=== PATIENT | male | born 1970 | race Caucasian/White ===

== ENCOUNTER 2025-04-26 06:25 | Day surgery (SDC) | payer OTHER, SELFPAY | END 2025-04-26 14:06 | disposition home or self-care (01) | LOC: GI 06:25 | PROVIDERS: ATTENDING PHYSICIAN Student in an Organized Health Care Education/Training Program | DX: Z12.11 Encounter for screening for malignant neoplasm of colon (principal); Z53.8 Procedure and treatment not carried out for other reasons | CPT/HCPCS: G0121; 93005 ==

== ENCOUNTER 2025-04-26 14:07 | Emergency (ER) | payer OTHER, SELFPAY ==
[2025-04-26 14:10] VITALS: BP 122/87
[2025-04-26 14:27] VITALS: BP 115/81; BMI 27.5
--- NOTE | 2025-04-26 14:43 | ED.GENMED ---
History of Present Illness
<Michael Castro MD, Resident - Last Filed: 04/26/25 15:36>
General
Chief Complaint: Heart Rate Problem
Source: patient
Time Seen by Provider: 04/26/25 14:31
History of Present Illness
History of Present Illness:
Patient is a 54-year-old male who presents to the emergency department from [facility] GI outpatient unit for irregular heart rate found prior to colonoscopy study. Patient was in his normal state of health and finish his bowel prep and presented to
gastroenterology for his scheduled screening colonoscopy procedure when it was found that he had an irregular heart rate. Due to suspicion of atrial fibrillation, the patient was promptly brought to the emergency department. The patient has no
symptoms of acute coronary syndrome, angina, palpitations, chest tightness, dizziness, or syncope. Patient leads a very active lifestyle and takes pride in his dedication to taking care of himself. he used to have hyperlipidemia managed with a
statin medication but lifestyle modifications have been able to control the patient's lipid levels and he has discontinued the statin. He has a family history of bulimia on his mother and father side. He works as a seasonal recruiter for a business
organization. Patient is calm and pleasant in discussion and cannot endorse any signs or symptoms of palpitations or when the onset of possible irregular heartbeat started.
Past History
<Michael Castro MD, Resident - Last Filed: 04/26/25 15:36>
Past History
ED Past Medical History: Hypercholesterolemia ( Managed with diet)
Review of Systems
<Michael Castro MD, Resident - Last Filed: 04/26/25 15:36>
Review of Systems
Constitutional: Reports no symptoms
EENT: Reports no symptoms
Respiratory: Reports no symptoms
Cardiac: Reports no symptoms
ABD/GI: Reports no symptoms
: Reports no symptoms
Musculoskeletal: Reports no symptoms
Skin: Reports no symptoms
Neurological: Reports no symptoms
Endocrine: Reports no symptoms
Hematologic/Lymphatic: Reports no symptoms
Psychiatric: Reports no symptoms
Phy Exam
<Michael Castro MD, Resident - Last Filed: 04/26/25 15:36>
General Physical Exam
General Presentation: well appearing and no apparent distress
General age: appears stated age
General Skin: warm and dry
General Habitus: normal
General Mental: alert
General Hydration: appears well hydrated
Cardiovascular Exam
Cardiovascular Exam: no edema, no gallop, no JVD, no murmur and irregularly irregular
Pulmonary Exam
Pulmonary Exam: lungs clear, no respiratory distress, no rales, chest non tender, no crackles, no rhonchi, no stridor, no wheezing and no cough
Course
<Michael Castro MD, Resident - Last Filed: 04/26/25 15:36>
Orders/Labs/Results
Orders:
Orders
04/26/25 14:12
Electrocardiogram (*1) Urgent
Reason for Study: Atrial Fibrillation
04/26/25 14:13
EKG- Treatment ONCE
04/26/25 14:40
CMP [Comprehensive Metabolic Panel] Urgent
Complete Blood Count/No Diff Urgent
TSH Reflex To Free T4 Urgent
04/26/25 15:03
Metoprolol [Lopressor] 12.5 mg PO NOW STA
04/26/25 15:32
Apixaban [Eliquis] 5 mg PO ONCE ONE
Metoprolol Xl [Toprol Xl] 12.5 mg PO NOW STA
04/26/25 20:00
Apixaban [Eliquis] 2.5 mg PO BID
Abnormal Lab Results
04/26/25
14:40
WBC 4.3 L 10^3/uL
(4.8-10.8)
MPV 10.5 H fL
(7.4-10.4)
Potassium 5.3 H mmol/L
(3.5-5.1)
04/26/25 14:40
04/26/25 14:40
Vital Signs
Initial and Last Documented VS:
Initial Vital Signs
Temp Pulse Resp BP Pulse Ox
36.7 C 72 18 122/87 99
04/26/25 14:10 04/26/25 14:10 04/26/25 14:10 04/26/25 14:10 04/26/25 14:10
Last Documented Vital Signs
Temp Pulse Resp BP Pulse Ox
36.6 C 90 16 131/102 98
04/26/25 15:57 04/26/25 15:57 04/26/25 15:57 04/26/25 15:57 04/26/25 15:57
<Piyush Liu MD - Last Filed: 04/26/25 17:00>
Orders/Labs/Results
Orders:
Orders
04/26/25 14:12
Electrocardiogram (*1) Urgent
Reason for Study: Atrial Fibrillation
04/26/25 14:13
EKG- Treatment ONCE
04/26/25 14:40
CMP [Comprehensive Metabolic Panel] Urgent
Complete Blood Count/No Diff Urgent
TSH Reflex To Free T4 Urgent
04/26/25 15:03
Metoprolol [Lopressor] 12.5 mg PO NOW STA
04/26/25 15:32
Apixaban [Eliquis] 5 mg PO ONCE ONE
Metoprolol Xl [Toprol Xl] 12.5 mg PO NOW STA
04/26/25 20:00
Apixaban [Eliquis] 2.5 mg PO BID
Abnormal Lab Results
04/26/25
14:40
WBC 4.3 L 10^3/uL
(4.8-10.8)
MPV 10.5 H fL
(7.4-10.4)
Potassium 5.3 H mmol/L
(3.5-5.1)
04/26/25 14:40
04/26/25 14:40
Vital Signs
Initial and Last Documented VS:
Initial Vital Signs
Temp Pulse Resp BP Pulse Ox
36.7 C 72 18 122/87 99
04/26/25 14:10 04/26/25 14:10 04/26/25 14:10 04/26/25 14:10 04/26/25 14:10
Last Documented Vital Signs
Temp Pulse Resp BP Pulse Ox
36.6 C 90 16 131/102 98
04/26/25 15:57 04/26/25 15:57 04/26/25 15:57 04/26/25 15:57 04/26/25 15:57
<Michael Castro MD, Resident - Last Filed: 04/26/25 15:36>
*Pulse Oximetry
SaO2: 98
Oxygen Mode of Delivery: Room air
Patient hypoxic: no
*Critical Care Note
Total Time (30-74mins, 75-104mins- exclusive of procedures): 60
<Michael Castro MD, Resident - Last Filed: 04/26/25 15:36>
Update Note
Update Note:
Problem List:
atrial fibrillation with unknown date of onset
Plan:
CBC and CMP ordered
TSH with reflex to T4 ordered
EKG
metoprolol for rate control
apixaban for clot prevention
Differential Diagnoses:
atrial fibrillation
paroxysmal atrial fibrillation
atrial flutter
Radiology:
not applicable
EKG:
- EKG conducted at 14:12 on 04/26/2025: Atrial fibrillation, abnormal EKG
- EKG conducted at 13:47 on 04/26/2025: Atrial fibrillation, abnormal EKG
Labs:
CBC with 4.3 white blood cells,
Updates:
ED Attending Note
<Michael Castro MD, Resident - Last Filed: 04/26/25 15:36>
-
Portions of this chart may have been created with voice recognition software.� Occasional wrong word or��sound alike� substitutions may have occurred due to the inherent limitations of voice recognition software.
<Piyush Liu MD - Last Filed: 04/26/25 17:00>
ED Attending Note
Patient seen and examined by attending physician: Yes
I performed a history and physical exam of patient and discussed management with resident, I reviewed resident's note and agree with documented findings and plan of care.: Yes
ED Attending Note:
I have seen and evaluated the patient with a [id number] encounter. I have spoken to the resident and involved in the medical history, the physical exam, medical decision making.
Evaluation and management service: agree unless noted differently below.
Results interpretation: agree unless noted differently below.
Focused HPI: 54-year-old male with no reported chronic medical issues presents with his for evaluation of atrial fibrillation. Patient was scheduled for a routine screening colonoscopy today. When he arrived at the GI lab he was noted to be
in atrial fibrillation. Procedure was aborted and he was sent to the ER. He has no known history of atrial fibrillation. He says he has no known medical history whatsoever and has never seen a student liaison officer. He is completely asymptomatic�denies
chest pain, palpitations, weakness, shortness of breath or any other acute complaints. He says he is quite active and regularly engages in [employer] and other activities without any limitations.
Physical exam: Awake and alert, not in distress. Vital signs are normal including heart rate in the 70s on my assessment. He has irregularly irregular rhythm on auscultation but no rubs gallops or murmurs. Lungs sound clear. No JVD. No edema in
the legs. Good pulses throughout.
Medical Decision Makin-year-old male presents with new onset A-fib. He is asymptomatic. EKG shows rate controlled atrial fibrillation. Screening labs unremarkable. I had a long discussion with the patient about diagnosis. He is not a
candidate for elective cardioversion�he is asymptomatic, hemodynamically stable, unclear chronicity of A-fib and he is not on anticoagulation. Will plan to start on anticoagulation with Eliquis. Will start on Toprol to maintain good rate control.
Stable for discharge to follow-up with cardiology as an outpatient. I spoke to the patient about monitoring heart rate, return precautions. All questions answered.
Discharge Plan
Departure
Patient Disposition: Home (Routine Discharge)
Date of Disposition: 04/26/25
Time of Disposition: 15:33
Patient with high blood pressure during this ER visit?: No
Discharge Problem:
Atrial fibrillation, controlled
Instructions: Atrial Fibrillation (DC), Chest Pain DCA Follow Up
Prescriptions:
New
metoprolol succinate 25 mg tablet extended release 24 hr
12.5 mg PO DAILY Qty: 30 0RF
apixaban 5 mg tablet
5 mg PO BID Qty: 60 0RF
Referrals:
Omar Majano MD [Family Provider, Family Practice]
Shaw Chua MD [Active, Cardiology] - Call in 1-3 days for appt
Activity Restrictions/Additional Instructions:
Thank you for visiting the Emergency Department at [facility].
1. Please schedule a follow up appointment as directed. Call first thing tomorrow morning to make an appointment.
2. If indicated, please take your medications as instructed and indicated on discharge paperwork.
3. If any of your symptoms do not improve, or persist, or become more severe within 6-12 hours, please return to the emergency department for further care.
4. Please return to the emergency department if you develop a headache, neck pain/stiffness, fever greater than 100.4F, chest pain, shortness of breath, persistent nausea, vomiting, slurred speech, difficulty walking, numbness/tingling, weakness,
signs of infection or any other symptoms that are worrisome to you.
Please call [phone] if you have any questions.
Interventions
Interventions:
*Risk Screen - Suicide Last Done: 04/26/25 14:10
*General Assessment Last Done: 04/26/25 14:10
*Neglect/Abuse Screening Last Done: 04/26/25 14:10
*ED- Fall Risk Assessment Last Done: 04/26/25 15:57
*ED COVID-19 Vaccine History Last Done: 04/26/25 14:27
*Nursing Disposition Last Done: 04/26/25 15:57
ED- Cardiac Assessment Last Done: 04/26/25 14:27
ED- Pulmonary Assessment Last Done: 04/26/25 14:37
Discharge Date and Time
Discharge Date/Time: 04/26/25 15:58
Print Language: MACANESE
[2025-04-26 14:55] LABS: Hematocrit 49.2 % (39.0-52.0); Hemoglobin 16.7 g/dL (13.0-18.0); Mean Corp Hgb Conc. 33.9 g/dL (33.0-37.0); Mean Corpuscular Volume 88.6 fL (80.0-94.0); Platelet Count 192 10^3/uL (130-400); Red Cell Dist. Width 12.6 % (11.5-14.5)
[2025-04-26 15:00] VITALS: BP 139/98
[2025-04-26 15:17] LABS: ALT (SGPT) 29 U/L (0-50); AST (SGOT) 33 U/L (17-59); Albumin 5.0 g/dl (3.5-5.0); Alkaline Phosphatase 47 U/L (38-126); Blood Urea Nitrogen 11 mg/dl (9-20); Calcium 9.6 mg/dl (8.4-10.2); Carbon Dioxide 29 mmol/L (22-30); Chloride 104 mmol/L (98-107); Estimated Creatinine Clearance 73 ml/min; Glucose 82 mg/dl (70-99); Potassium 5.3 mmol/L (3.5-5.1); Sodium 138 mmol/L (135-145); Total Protein 7.5 g/dl (6.3-8.2); eGFR > 60.00
[2025-04-26] MEDS: TOPROL XL 12.5 MG PO (15:46)
[2025-04-26] MEDS: ELIQUIS 5 MG PO (15:46)
[2025-04-26 15:57] VITALS: BP 131/102
== END 2025-04-26 15:58 | disposition home or self-care (01) ==
LOC: EMR 14:07
PROVIDERS: EMERGENCY PHYSICIAN Emergency Medicine; FAMILY PHYSICIAN Family Medicine
DX: I48.91 Unspecified atrial fibrillation (principal); E78.00 Pure hypercholesterolemia, unspecified; Z79.01 Long term (current) use of anticoagulants
CPT/HCPCS: 99284; 80053; 84443; 85027; 93005

== ENCOUNTER 2025-05-12 07:12 | Day surgery (SDC) | payer OTHER, SELFPAY ==
[2025-05-12 07:59] VITALS: BMI 27.4
[2025-05-12] MEDS: ELIQUIS 5 MG PO (08:46)
--- NOTE | 2025-05-12 09:26 | ITS.CL.CARDI ---
Job Printer - Cardioversion
Cardioversion
Procedure Report:
Procedure: AMEYA-guided electrical cardioversion
Pre-operative diagnosis: Persistent atrial fibrillation
Post-operative diagnosis: Persistent atrial fibrillation status post DC cardioversion to sinus rhythm
Anesthesia: MAC
Attending Physician: Gurinder Weems MD
Procedure Description: The patient was brought to the electrophysiology laboratory in the fasting state. Informed consent was obtained from the patient prior to the start of the procedure. Adherence to anticoagulation was confirmed. Electrodes were
placed on the patient and connected to an external defibrillator. Monitoring of blood pressure, ECG tracings, and pulse oximetry was initiated. The pads were applied to the patient in the anterior and posterior positions. The patient was sedated by
the anesthesiologist. A AMEYA (reported separately) was performed prior to the cardioversion. No left atrial or left atrial appendage thrombus was seen. After the AMEYA probe was removed, a 200 joule biphasic synchronized shock was delivered to the
patient under MAC anesthesia. Sinus rhythm was successfully restored. The patient recovered uneventfully from MAC anesthesia. There were no immediate post-procedure complications. The patient left the lab in good condition. The attending physician
was present throughout the entire procedure.
Impression: Successful AMEYA-guided direct current cardioversion with christianity of sinus rhythm after one 200 joule biphasic synchronized shock.
== END 2025-05-12 09:48 | disposition home or self-care (01) ==
LOC: CATH 07:12
PROVIDERS: ATTENDING PHYSICIAN Internal Medicine Cardiovascular Disease; FAMILY PHYSICIAN Family Medicine; OTHER PHYSICIAN Internal Medicine Cardiovascular Disease
DX: I48.19 Other persistent atrial fibrillation (principal); I08.3 Combined rheumatic disorders of mitral, aortic and tricuspid valves; I08.8 Other rheumatic multiple valve diseases
CPT/HCPCS: 93312; 93320; 93325; 92960; 93005

== ENCOUNTER → 2025-08-08 12:23 | Outpatient (REF) | payer OTHER, SELFPAY | LOC: DHSLP 12:23 | PROVIDERS: ATTENDING PHYSICIAN Physician Assistant Medical; FAMILY PHYSICIAN Family Medicine | DX: G47.33 Obstructive sleep apnea (adult) (pediatric) (principal) | CPT/HCPCS: 95800 ==